=== PATIENT | male | born 1975 | race Caucasian/White ===

== ENCOUNTER 2019-09-06 14:41 | Inpatient (IN) | payer OTHER ==
[~2019-09-06] VITALS: Ht 170.2 cm; Wt 80.9 kg
[2019-09-06] MEDS ORDERED: ONDANSETRON 4 MG/2 ML VIAL IV ONE ×2 (15:15→17:15)
[2019-09-06] MEDS ORDERED: IV NORMAL SALINE 1000 ML BAG IV ONE ×2 (15:15→16:15)
[2019-09-06] MEDS ORDERED: FAMOTIDINE. 20 MG/2 ML VIAL IV ONE ×2 (15:15→15:33)
[2019-09-06] MEDS ORDERED: ONDANSETRON 4 MG/2 ML VIAL ONE ×2 (15:32→17:11)
--- NOTE | 2019-09-06 15:50 | NUR ---
PT SIGNED CONSENT FOR IV CONTRASTED CT SCAN.
[2019-09-06 15:53] LABS: BASOPHILS % (AUTO) 0.2 % (0.0-2.0); HEMATOCRIT 55.6 % (36.7-47.1); HEMOGLOBIN 18.6 g/dL (12.5-16.3); LYMPHOCYTES # (AUTO) 0.8 K/uL (20.0-40.0); LYMPHOCYTES % (AUTO) 18.9 % (20.5-51.5); MEAN CORPUSCULAR HEMOGLOBIN 28.2 uug (23.8-33.4); MEAN CORPUSCULAR HGB CONC 33 g/dL (32.5-36.3); MEAN CORPUSCULAR VOLUME 84.5 fL (73.0-96.2); MONOCYTES # (AUTO) 0.7 K/uL (2.0-10.0); MONOCYTES % (AUTO) 14.9 % (0.0-11.0); NEUTROPHILS # (AUTO) 2.9 K/uL (1.8-8.9); PLATELET COUNT (AUTO) 203 K/uL (152-348); WHITE BLOOD COUNT (AUTO) 4.5 K/uL (3.6-10.2)
[2019-09-06 15:56] LABS: RED BLOOD CELL COUNT(AUTO) 6.59 MIL/uL (4.06-5.63)
[2019-09-06] MEDS ORDERED: SWABABLE VALVE TRANSFER SET EA MC ONE (15:56)
[2019-09-06] MEDS ORDERED: IV NORMAL SALINE 0 ML IV ONE (15:57)
[2019-09-06] MEDS ORDERED: IOHEXOL 300MG/ML 100 ML INFUS..BTL ONE (15:57)
[2019-09-06 16:45] LABS: CREATININE 1.7 mg/dL (0.6-1.3); POTASSIUM 3.6 mmol/L (3.5-5.1)
[2019-09-06 16:51] LABS: BILIRUBIN,DIRECT 0.3 mg/dL (0.0-0.2); BILIRUBIN,TOTAL 0.6 mg/dL (0.2-1.0); TOTAL PROTEIN, SERUM 7.4 g/dL (6.4-8.2)
[2019-09-06] MEDS ORDERED: AZITHROMYCIN IV 500 MG in IV DEXTROSE 5% 250 ML IV ONE (18:15)
[2019-09-06] MEDS ORDERED: CEFTRIAXONE 1 G in IV DEXTROSE 5% 50 ML IV ONE (18:15)
[2019-09-06] MEDS ORDERED: AZITHROMYCIN 500 MG VIAL IV ONE (18:17)
[2019-09-06] MEDS ORDERED: CEFTRIAXONE 1 G VIAL ONE (18:17)
--- NOTE | 2019-09-06 19:25 | NUR ---
Assumed care of pt at thist deb. Pt is resting comfortably in bed. Appears in no apparent distress. Family at bedside. Pt. admitted to Med/Surg, under care of Monty Mehta NP. Belongs List completed.
[2019-09-06] MEDS ORDERED: MAGNESIUM HYDROXIDE 30 ML LIQUID UDC PO PRN (19:30)
[2019-09-06] MEDS ORDERED: ONDANSETRON 4 MG/2 ML VIAL IV PRN (19:30)
[2019-09-06] MEDS ORDERED: Z GUARD REMEDY PASTE 57 GM TUBE TOP PRN (19:30)
[2019-09-06] MEDS ORDERED: MORPHINE SULFATE 2 MG/1 ML DISP.SYRIN IV PRN (19:30)
[2019-09-06] MEDS ORDERED: HYDROCODONE/APAP 5-325MG TABLET PO PRN (19:30)
[2019-09-06] MEDS ORDERED: ACETAMINOPHEN 325 MG TABLET PO PRN (19:30)
--- NOTE | 2019-09-06 19:30 | NUR ---
RECEIVED PT IN ER. UNDER THE CARE OF DR. AGUIAR. DX: PNEUMONIA. PT IN NO ACUTE DISTRESS. IV INTACT. BROTHER AT BEDSIDE. [facility] ASSESSMENT DONE. ADMISSION PROCESS AND CARE PLAN INITIATED. SAFETY AND COMFORT PROVIDED. WILL CONTINUE TO MONITOR.
[2019-09-06 20:30] VITALS: BP 112/78
[2019-09-06] MEDS: HYDROCORTISONE 1% CREAM 30 GM TUBE TP SCH (20:30)
--- NOTE | 2019-09-06 23:30 | NUR ---
PT GOT BACK FROM HIS HIDA SCAN. PT IN NO ACUTE DISTRESS. WILL CONTINUE TO MONITOR.
[2019-09-06] MEDS: IV NS 1000 ML 1,000 ML IV PRN (23:41)
--- NOTE | 2019-09-07 06:07 | NUR ---
PT SLEPT INTERMITTENTLY. PRESCRIBED MEDICATION GIVEN AND PT TOLERATED IT WELL. SAFETY AND COMFORT PROVIDED. WILL ENDORSE TO INCOMING NURSE FOR CONTINUITY OF CARE.
[2019-09-07 06:15] VITALS: BP 111/73
[2019-09-07 06:41] LABS: BASOPHILS % (AUTO) 0.1 % (0.0-2.0); EOSINOPHILS # (AUTO) 0.1 K/uL (0.0-0.7); EOSINOPHILS % (AUTO) 2.3 % (0.0-7.0); HEMATOCRIT 48.1 % (36.7-47.1); HEMOGLOBIN 15.8 g/dL (12.5-16.3); LYMPHOCYTES # (AUTO) 0.8 K/uL (20.0-40.0); MEAN CORPUSCULAR HGB CONC 33 g/dL (32.5-36.3); MEAN CORPUSCULAR VOLUME 85.5 fL (73.0-96.2); MONOCYTES # (AUTO) 0.6 K/uL (2.0-10.0); MONOCYTES % (AUTO) 14.7 % (0.0-11.0); NEUTROPHILS # (AUTO) 2.7 K/uL (1.8-8.9); NEUTROPHILS % (AUTO) 62.9 % (38.5-71.5); PLATELET COUNT (AUTO) 205 K/uL (152-348); RED BLOOD CELL COUNT(AUTO) 5.62 MIL/uL (4.06-5.63); WHITE BLOOD COUNT (AUTO) 4.2 K/uL (3.6-10.2)
[2019-09-07 07:05] LABS: BILIRUBIN,DIRECT 0.2 mg/dL (0.0-0.2); BILIRUBIN,TOTAL 0.7 mg/dL (0.2-1.0); CREATININE 1.2 mg/dL (0.6-1.3); MAGNESIUM 2.7 mg/dL (1.8-2.4); PHOSPHOROUS 2.8 mg/dL (2.5-4.9); POTASSIUM 3.8 mmol/L (3.5-5.1)
[2019-09-07 07:17] LABS: THYROID STIMULATING HORMONE 0.63 mIU/mL (0.358-3.740)
--- NOTE | 2019-09-07 08:00 | NUR ---
Pt is awake , alert/oriented x 4, denies N/V, has some abd pain, but does not request medications. IV NS running at 75 cc/hr. No distress.
[2019-09-07] MEDS: HYDROCORTISONE 1% CREAM 30 GM TUBE TP SCH (09:20)
[2019-09-07 11:14] VITALS: BP 110/69
[2019-09-07 15:18] VITALS: BP 110/77
[2019-09-07] MEDS ORDERED: CEFTRIAXONE 1 G in IV DEXTROSE 5% 50 ML IV SCH (18:00)
[2019-09-07] MEDS: IV NS 1000 ML 1,000 ML IV PRN (18:32)
[2019-09-07] MEDS: AZITHROMYCIN 250 MG TABLET PO SCH (18:42)
[2019-09-07] MEDS ORDERED: AZITHROMYCIN 250 MG TABLET PO SCH (19:00)
--- NOTE | 2019-09-07 19:30 | NUR ---
Received patient awake and alert in bed with brother at bedside. No signs of acute distress noted. No complaints of abdominal pain, no episodes of N/V. IVF running on the right AC, no s/s of infection or infiltration noted. Safety measures initiated, bed is low and locked, call light within reach, Will continue to monitor.
[2019-09-07 20:00] VITALS: BP 109/69
[2019-09-07] MEDS: CLOTRIMAZOLE 1% CREAM 30 GM TUBE TOP SCH (21:12)
[2019-09-08 04:00] VITALS: BP 120/83
--- NOTE | 2019-09-08 06:08 | NUR ---
Patient slept intermittently throughout night. No complaints of abdominal pain, no N/V. Patient requesting food, but aware NPO. Will endorse to morning shift to follow up with GI consult. Safety measures given
[2019-09-08 06:40] LABS: CREATININE 0.8 mg/dL (0.6-1.3); POTASSIUM 3.6 mmol/L (3.5-5.1)
[2019-09-08 07:05] LABS: BASOPHILS % (AUTO) 0.3 % (0.0-2.0); EOSINOPHILS # (AUTO) 0.1 K/uL (0.0-0.7); EOSINOPHILS % (AUTO) 2.4 % (0.0-7.0); HEMATOCRIT 47.1 % (36.7-47.1); HEMOGLOBIN 15.5 g/dL (12.5-16.3); LYMPHOCYTES # (AUTO) 0.7 K/uL (20.0-40.0); LYMPHOCYTES % (AUTO) 13.9 % (20.5-51.5); MEAN CORPUSCULAR HGB CONC 33 g/dL (32.5-36.3); MEAN CORPUSCULAR VOLUME 85.3 fL (73.0-96.2); MONOCYTES # (AUTO) 0.8 K/uL (2.0-10.0); MONOCYTES % (AUTO) 15.4 % (0.0-11.0); NEUTROPHILS # (AUTO) 3.6 K/uL (1.8-8.9); RED BLOOD CELL COUNT(AUTO) 5.52 MIL/uL (4.06-5.63)
[2019-09-08 07:33] LABS: PLATELET COUNT (AUTO) 258 K/uL (152-348); WHITE BLOOD COUNT (AUTO) 5.3 K/uL (3.6-10.2)
--- NOTE | 2019-09-08 08:00 | NUR ---
Received patient awake in bed. AAOx4. Denies pain, only complaints of being hungry. Patient remains NPO at this time. No n/v or abd pain noted. Safety measures implemented. IV R Ac intact with IVF running as ordered. Call light within reach. Will continue to monitor.
[2019-09-08] MEDS: AZITHROMYCIN 250 MG TABLET PO SCH (08:56)
[2019-09-08] MEDS: CLOTRIMAZOLE 1% CREAM 30 GM TUBE TOP SCH (08:56)
[2019-09-08 09:44] LABS: BAND % (MANUAL) 3 % (0-10); LYMPHOCYTES % (MANUAL) 14 % (20-40); METAMYELOCYTES % 1 % (0-1); MONOCYTES % (MANUAL) 12 % (2-10); NEUTROPHILS % (MANUAL) 70 % (42-75)
[2019-09-08 11:00] VITALS: BP 128/79
--- NOTE | 2019-09-08 14:20 | NUR ---
Patient tolerated regular kosher diet for lunch. Denies any n/v or abd pain. Discharge orders to go back to home in place. In no acute distress. Exit care and education provided regarding continuity of care. IV and ID band removed. Discharged via private car.
== END 2019-09-08 14:20 | disposition home or self-care (01) ==
LOC: ER 14:41 → MEDSURG3 20:06
PROVIDERS: ADMIT Nurse Practitioner Acute Care; ATTEND Nurse Practitioner Acute Care
DX: K81.0 Acute cholecystitis (principal); J15.9 Unspecified bacterial pneumonia; N17.0 Acute kidney failure with tubular necrosis; E87.2 Acidosis; B36.9 Superficial mycosis, unspecified; E86.0 Dehydration; K40.90 Unilateral inguinal hernia, without obstruction or gangrene, not specified as recurrent; R74.0 Nonspecific elevation of levels of transaminase and lactic acid dehydrogenase [LDH]; K44.9 Diaphragmatic hernia without obstruction or gangrene
CPT/HCPCS: 36415; 70030-TC; 71046; 76705; 78445; 83605; 83690; 83735; 84100; 84443; 85025; 85730; 87040; 87400; A4663; A9537; G0378; J0456; J0696; J2405; J3490; J7030; J7050; J7060; Q0144; Q9967